=== PATIENT | male | born 1950 | race Caucasian/White ===

== ENCOUNTER 2019-12-24 15:38 | Inpatient (IN) ==
[2019-12-27] MEDS ORDERED: Ipratropium/Albuterol Neb 3 ML IH PRN (16:31)
[2019-12-27] MEDS: Doxycycline 100 MG CAPSULE PO SCH (20:26)
[2019-12-27] MEDS ORDERED: [UNRECOGNIZED DRUG - OTHER] PO SCH (21:00)
[2019-12-27] MEDS ORDERED: CLAVULANATE PO SCH (21:00)
[2019-12-27] MEDS ORDERED: AMOXICILLIN PO SCH (21:00)
[2019-12-28 05:46] LABS: Basophils # 0.1 K/mcL (0.0-0.2); Basophils % 0.9 %; Eosinophils # 0.3 K/mcL (0.0-0.6); Eosinophils % 3.6 %; Hematocrit 33.4 % (37.5-50.1); Hemoglobin 10.7 g/dL (12.9-16.9); Immature Granulocytes % 0.5 % (0-4); Lymphocytes # 1.2 K/mcL (0.6-4.6); Mean Corpuscular Hemoglobin 19.6 pg (28.0-33.3); Mean Corpuscular Volume 61.2 fL (83.0-100.0); Mean Platelet Volume 10.9 fL (9.4-12.4); Monocytes % 11.7 %; Neutrophils # 5.5 K/mcL (1.6-8.9); Platelet Count 250 K/mcL (140-400); Red Blood Count 5.46 M/mcL (4.19-5.50); Red Cell Distribution Width 15.4 % (11.5-14.5); Segmented Neutrophils % 68.3 %; White Blood Count 8.1 K/mcL (4.3-11.1)
[2019-12-28 05:58] LABS: Hypochromasia Present (Not Present); Platelet Estimate Normal (Normal)
[2019-12-28 05:59] LABS: Microcytosis Present (Not Present)
[2019-12-28 06:06] LABS: Alanine Aminotransferase 16 Units/L (7-52); Albumin 3.5 g/dL (3.5-5.7); Albumin/Globulin Ratio 1.1 (1.1-2.2); Alkaline Phosphatase 64 Units/L (34-104); Aspartate Amino Transferase 18 Units/L (13-39); BUN/Creatinine Ratio 23 (6-26); Bilirubin,Total 0.9 mg/dL (0.3-1.0); Blood Urea Nitrogen 15 mg/dL (8-23); Calcium 9.1 mg/dL (8.6-10.3); Carbon Dioxide 25 mEq/L (23-29); Chloride 106 mEq/L (98-107); Globulin 3.2 g/dL (2.4-3.5); Glucose 142 mg/dL (70-105); Magnesium 2.2 mg/dL (1.6-2.6); Osmolality,Calculated 291 (280-300); Potassium 3.6 mEq/L (3.5-5.1); Sodium 139 mEq/L (136-145); Total Protein 6.7 g/dL (6.4-8.9); eGFR For African Americans > 60 (> 60); eGFR For Non-African Americans > 60 (> 60)
[2019-12-28] MEDS: amLODIPine 5 MG TABLET PO SCH (08:39)
[2019-12-28] MEDS: Aspirin 81 MG TAB.CHEW PO SCH (08:39)
[2019-12-28] MEDS: Doxycycline 100 MG CAPSULE PO SCH ×2 (08:39→20:00)
[2019-12-28] MEDS ORDERED: Ipratropium/Albuterol Neb 3 ML IH SCH (18:00)
[2019-12-28] MEDS: *HR* OxyCODONE/APAP 5/325 TABLET PO PRN (22:13)
[2019-12-29 05:33] LABS: Mean Corpuscular HGB Conc 32.4 g/dL (31.6-35.5); Mean Corpuscular Hemoglobin 20.2 pg (28.0-33.3); Mean Corpuscular Volume 62.4 fL (83.0-100.0); Mean Platelet Volume 11.2 fL (9.4-12.4); Platelet Count 262 K/mcL (140-400); Red Blood Count 5.45 M/mcL (4.19-5.50); Red Cell Distribution Width 15.3 % (11.5-14.5); White Blood Count 7.7 K/mcL (4.3-11.1)
[2019-12-29 06:15] LABS: BUN/Creatinine Ratio 22 (6-26); Blood Urea Nitrogen 16 mg/dL (8-23); Calcium 9.4 mg/dL (8.6-10.3); Carbon Dioxide 26 mEq/L (23-29); Chloride 105 mEq/L (98-107); Glucose 168 mg/dL (70-105); Magnesium 2.5 mg/dL (1.6-2.6); Osmolality,Calculated 291 (280-300); Potassium 4.1 mEq/L (3.5-5.1); Sodium 138 mEq/L (136-145); eGFR For African Americans > 60 (> 60); eGFR For Non-African Americans > 60 (> 60)
[2019-12-29] MEDS: Doxycycline 100 MG CAPSULE PO SCH ×2 (09:48→20:29)
[2019-12-29] MEDS: amLODIPine 5 MG TABLET PO SCH (09:48)
[2019-12-29] MEDS: Aspirin 81 MG TAB.CHEW PO SCH (09:50)
[2019-12-29] MEDS: *HR* OxyCODONE/APAP 5/325 TABLET PO PRN ×2 (09:56→20:29)
[2019-12-29] MEDS ORDERED: hydrALAZINE 25 MG TABLET PO PRN (12:45)
[2019-12-29 19:07] LABS: Estimated Average Glucose 148 mg/dl
[2019-12-30] MEDS: Doxycycline 100 MG CAPSULE PO SCH ×2 (09:29→19:56)
[2019-12-30] MEDS: Aspirin 81 MG TAB.CHEW PO SCH (09:29)
[2019-12-30] MEDS: amLODIPine 5 MG TABLET PO SCH (09:30)
[2019-12-30] MEDS ORDERED: amLODIPine 5 MG TABLET PO ONE (12:44)
[2019-12-30] MEDS: *HR* OxyCODONE/APAP 5/325 TABLET PO PRN (19:56)
[2019-12-31] MEDS: Doxycycline 100 MG CAPSULE PO SCH ×2 (08:38→20:25)
[2019-12-31] MEDS: Aspirin 81 MG TAB.CHEW PO SCH (08:38)
[2019-12-31] MEDS: amLODIPine 5 MG TABLET PO SCH (08:38)
[2019-12-31] MEDS: *HR* OxyCODONE/APAP 5/325 TABLET PO PRN (13:05)
[2020-01-01] MEDS: Doxycycline 100 MG CAPSULE PO SCH ×2 (09:16→20:00)
[2020-01-01] MEDS: amLODIPine 5 MG TABLET PO SCH (09:16)
[2020-01-01] MEDS: *HR* OxyCODONE/APAP 5/325 TABLET PO PRN (09:16)
[2020-01-01] MEDS: Aspirin 81 MG TAB.CHEW PO SCH (09:17)
[2020-01-02] MEDS: amLODIPine 5 MG TABLET PO SCH (09:07)
[2020-01-02] MEDS: Aspirin 81 MG TAB.CHEW PO SCH (09:07)
[2020-01-02] MEDS: *HR* OxyCODONE/APAP 5/325 TABLET PO PRN (09:26)
[2020-01-03] MEDS: *HR* OxyCODONE/APAP 5/325 TABLET PO PRN (03:32)
[2020-01-03] MEDS: Aspirin 81 MG TAB.CHEW PO SCH (08:57)
[2020-01-03] MEDS: amLODIPine 5 MG TABLET PO SCH (08:58)
[2020-01-04] MEDS: *HR* OxyCODONE/APAP 5/325 TABLET PO PRN ×2 (02:06→21:00)
[2020-01-04] MEDS: Melatonin 3 MG TABLET PO SCH ×2 (02:06→21:00)
[2020-01-04] MEDS: Aspirin 81 MG TAB.CHEW PO SCH (09:10)
[2020-01-04] MEDS: amLODIPine 5 MG TABLET PO SCH (09:10)
[2020-01-05] MEDS: amLODIPine 5 MG TABLET PO SCH (10:16)
[2020-01-05] MEDS: Aspirin 81 MG TAB.CHEW PO SCH (10:16)
[2020-01-05] MEDS: Melatonin 3 MG TABLET PO SCH (20:56)
[2020-01-05] MEDS: *HR* OxyCODONE/APAP 5/325 TABLET PO PRN (20:58)
[2020-01-06 05:39] LABS: Hematocrit 32.8 % (37.5-50.1); Hemoglobin 10.6 g/dL (12.9-16.9); Mean Corpuscular HGB Conc 32.3 g/dL (31.6-35.5); Mean Corpuscular Hemoglobin 19.9 pg (28.0-33.3); Mean Corpuscular Volume 61.4 fL (83.0-100.0); Mean Platelet Volume 11.6 fL (9.4-12.4); Platelet Count 287 K/mcL (140-400); Red Blood Count 5.34 M/mcL (4.19-5.50); Red Cell Distribution Width 15.3 % (11.5-14.5); White Blood Count 7.7 K/mcL (4.3-11.1)
[2020-01-06 05:55] LABS: BUN/Creatinine Ratio 25 (6-26); Blood Urea Nitrogen 19 mg/dL (8-23); Calcium 9.4 mg/dL (8.6-10.3); Carbon Dioxide 26 mEq/L (23-29); Chloride 104 mEq/L (98-107); Glucose 182 mg/dL (70-105); Magnesium 2.7 mg/dL (1.6-2.6); Osmolality,Calculated 293 (280-300); Sodium 138 mEq/L (136-145); eGFR For African Americans > 60 (> 60); eGFR For Non-African Americans > 60 (> 60)
[2020-01-06] MEDS: amLODIPine 5 MG TABLET PO SCH (08:46)
[2020-01-06] MEDS: Aspirin 81 MG TAB.CHEW PO SCH (08:46)
[2020-01-06] MEDS ORDERED: *HR* Dextrose 50 % in Water (Syg) 50 ML SYRINGE IVP PRN (11:17)
[2020-01-06] MEDS ORDERED: D5% in Water 1,000 ML IVC PRN (11:17)
[2020-01-06] MEDS ORDERED: Dextrose Gel 15 GM/37.5 ML TUBE PO PRN ×2 (11:17)
[2020-01-06] MEDS: Insulin LISPRO 300 UNITS/3 ML VIAL SQ SCH ×3 (11:50→21:20)
[2020-01-06 19:46] LABS: Estimated Average Glucose 157 mg/dl
[2020-01-06] MEDS: *HR* OxyCODONE/APAP 5/325 TABLET PO PRN (21:18)
[2020-01-06] MEDS: Melatonin 3 MG TABLET PO SCH (21:19)
[2020-01-07] MEDS: Aspirin 81 MG TAB.CHEW PO SCH (08:18)
[2020-01-07] MEDS: amLODIPine 5 MG TABLET PO SCH (08:18)
[2020-01-07] MEDS: Insulin LISPRO 300 UNITS/3 ML VIAL SQ SCH ×4 (08:19→21:35)
[2020-01-07] MEDS: *HR* OxyCODONE/APAP 5/325 TABLET PO PRN (21:33)
[2020-01-07] MEDS: Melatonin 3 MG TABLET PO SCH (21:34)
[2020-01-08] MEDS: Insulin LISPRO 300 UNITS/3 ML VIAL SQ SCH ×4 (08:34→20:59)
[2020-01-08] MEDS: amLODIPine 5 MG TABLET PO SCH (08:34)
[2020-01-08] MEDS: Aspirin 81 MG TAB.CHEW PO SCH (08:34)
[2020-01-08] MEDS: Melatonin 3 MG TABLET PO SCH (20:59)
[2020-01-08] MEDS: *HR* OxyCODONE/APAP 5/325 TABLET PO PRN (21:08)
[2020-01-09] MEDS: Aspirin 81 MG TAB.CHEW PO SCH (08:19)
[2020-01-09] MEDS: amLODIPine 5 MG TABLET PO SCH (08:19)
[2020-01-09] MEDS: *HR* OxyCODONE/APAP 5/325 TABLET PO PRN (08:19)
[2020-01-09] MEDS: Insulin LISPRO 300 UNITS/3 ML VIAL SQ SCH ×4 (08:21→20:55)
[2020-01-09] MEDS: Melatonin 3 MG TABLET PO SCH (20:36)
[2020-01-10] MEDS: amLODIPine 5 MG TABLET PO SCH (09:07)
[2020-01-10] MEDS: Aspirin 81 MG TAB.CHEW PO SCH (09:07)
[2020-01-10] MEDS: Insulin LISPRO 300 UNITS/3 ML VIAL SQ SCH ×4 (09:09→21:33)
[2020-01-10] MEDS: polyethylene glycoL 3350 17 GM POWD.PACK PO SCH (18:47)
[2020-01-10] MEDS: Melatonin 3 MG TABLET PO SCH (22:17)
[2020-01-10] MEDS: *HR* OxyCODONE/APAP 5/325 TABLET PO PRN (22:17)
[2020-01-11] MEDS: polyethylene glycoL 3350 17 GM POWD.PACK PO SCH (08:41)
[2020-01-11] MEDS: Aspirin 81 MG TAB.CHEW PO SCH (08:41)
[2020-01-11] MEDS: amLODIPine 5 MG TABLET PO SCH (08:41)
[2020-01-11] MEDS: Insulin LISPRO 300 UNITS/3 ML VIAL SQ SCH ×4 (08:55→21:47)
[2020-01-11] MEDS: Nystatin SUSP 5 ML UD.LIQ PO SCH ×2 (17:07→21:47)
[2020-01-11] MEDS: Melatonin 3 MG TABLET PO SCH (21:47)
[2020-01-11] MEDS: *HR* OxyCODONE/APAP 5/325 TABLET PO PRN (21:47)
[2020-01-12] MEDS: Nystatin SUSP 5 ML UD.LIQ PO SCH ×3 (08:18→21:22)
[2020-01-12] MEDS: amLODIPine 5 MG TABLET PO SCH (08:18)
[2020-01-12] MEDS: Aspirin 81 MG TAB.CHEW PO SCH (08:18)
[2020-01-12] MEDS: polyethylene glycoL 3350 17 GM POWD.PACK PO SCH (08:19)
[2020-01-12] MEDS: Insulin LISPRO 300 UNITS/3 ML VIAL SQ SCH ×4 (08:19→21:21)
[2020-01-12] MEDS: *HR* OxyCODONE/APAP 5/325 TABLET PO PRN (21:22)
[2020-01-12] MEDS: Melatonin 3 MG TABLET PO SCH (21:22)
[2020-01-13] MEDS: Nystatin SUSP 5 ML UD.LIQ PO SCH ×3 (09:09→20:45)
[2020-01-13] MEDS: amLODIPine 5 MG TABLET PO SCH (09:09)
[2020-01-13] MEDS: Aspirin 81 MG TAB.CHEW PO SCH (09:10)
[2020-01-13] MEDS: Insulin LISPRO 300 UNITS/3 ML VIAL SQ SCH ×4 (09:10→20:39)
[2020-01-13] MEDS: polyethylene glycoL 3350 17 GM POWD.PACK PO SCH (09:10)
[2020-01-13 12:03] LABS: Basophils # 0.1 K/mcL (0.0-0.2); Basophils % 1.1 %; Eosinophils # 0.3 K/mcL (0.0-0.6); Eosinophils % 3.2 %; Hematocrit 34.5 % (37.5-50.1); Immature Granulocytes % 0.3 % (0-4); Lymphocytes # 1.5 K/mcL (0.6-4.6); Lymphocytes % 16.3 %; Mean Corpuscular HGB Conc 31.9 g/dL (31.6-35.5); Mean Corpuscular Hemoglobin 19.7 pg (28.0-33.3); Mean Corpuscular Volume 61.9 fL (83.0-100.0); Monocytes # 0.6 K/mcL (0.0-1.3); Monocytes % 6.7 %; Neutrophils # 6.4 K/mcL (1.6-8.9); Platelet Count 281 K/mcL (140-400); Red Blood Count 5.57 M/mcL (4.19-5.50); Red Cell Distribution Width 15.3 % (11.5-14.5); Segmented Neutrophils % 72.4 %; White Blood Count 8.9 K/mcL (4.3-11.1)
[2020-01-13 12:12] LABS: Anisocytosis 1+ (Not Present); BUN/Creatinine Ratio 21 (6-26); Blood Urea Nitrogen 16 mg/dL (8-23); Calcium 9.7 mg/dL (8.6-10.3); Carbon Dioxide 27 mEq/L (23-29); Chloride 103 mEq/L (98-107); Glucose 219 mg/dL (70-105); Magnesium 2.2 mg/dL (1.6-2.6); Osmolality,Calculated 292 (280-300); Potassium 3.9 mEq/L (3.5-5.1); Sodium 137 mEq/L (136-145); eGFR For African Americans > 60 (> 60); eGFR For Non-African Americans > 60 (> 60)
[2020-01-13] MEDS: *HR* OxyCODONE/APAP 5/325 TABLET PO PRN (20:45)
[2020-01-13] MEDS: Melatonin 3 MG TABLET PO SCH (20:46)
[2020-01-14 07:08] VITALS: BP 114/74
[2020-01-14] MEDS ORDERED: Bisacodyl 10 MG RECTAL SUPPOSITORY RC ONE (08:52)
[2020-01-14] MEDS: Insulin LISPRO 300 UNITS/3 ML VIAL SQ SCH ×2 (09:09→11:35)
[2020-01-14] MEDS: Aspirin 81 MG TAB.CHEW PO SCH (09:11)
[2020-01-14] MEDS: amLODIPine 5 MG TABLET PO SCH (09:11)
[2020-01-14] MEDS: polyethylene glycoL 3350 17 GM POWD.PACK PO SCH (09:11)
[2020-01-14] MEDS: Nystatin SUSP 5 ML UD.LIQ PO SCH (09:12)
== END 2020-01-14 14:50 | DRG 56 ==
LOC: INPGRE 12-27 15:15
PROVIDERS: ADMIT Family Medicine; ATTEND Family Medicine